=== PATIENT | female | born 1955 | race Caucasian/White ===

== ENCOUNTER 2017-10-17 09:44 | Day surgery (SDC) | payer BC ==
[~2017-10-17 09:44] MED LIST: VERSED ONE
[2017-10-17] MEDS ORDERED: NS 500 ML IV 500 ML IV ONE (12:30)
[2017-10-17] MEDS ORDERED: TETRACAINE 0.5% OPHTH 1 DOSE AFFEYE ONE ×2 (12:42→14:37)
[2017-10-17] MEDS ORDERED: VIGAMOX 0.5% OPHTH 1 DOSE AFFEYE ONE ×5 (12:45→15:05)
[2017-10-17] MEDS ORDERED: PROLENSA OPHTH 1 DOSE AFFEYE ONE (12:56)
[2017-10-17] MEDS ORDERED: ALPHAGAN-P OPHTH 1 DOSE AFFEYE ONE (12:58)
[2017-10-17] MEDS ORDERED: CYCLOGYL 1% OPHTH 1 DOSE OP ONE ×3 (13:00→13:05)
[2017-10-17] MEDS ORDERED: AK-DILATE 2.5% OPHTH 1 DOSE OP ONE ×3 (13:00→13:05)
[2017-10-17] MEDS ORDERED: MYDRIACIL OPHTH 1 DOSE AFFEYE ONE ×3 (13:00→13:05)
[2017-10-17] MEDS ORDERED: BETADINE OPHTH SOLN 5% EACHEYE ONE (14:38)
[2017-10-17] MEDS ORDERED: ADRENALINE CHL INJ IJ ONE ×2 (14:41→14:52)
[2017-10-17] MEDS ORDERED: XYLOCAINE-MPF 1% IJ ONE ×2 (14:41→14:52)
[2017-10-17] MEDS ORDERED: DUOVISC IO ONE ×2 (14:41→14:52)
[2017-10-17] MEDS ORDERED: BSS OPHTH (PLAIN) 500 ML with VANCOMYCIN HCL 500 MG VIAL 25 MG, ADRENALINE CHL INJ 1 MG IR ONE ×6 (14:44)
[2017-10-17 16:59] VITALS: BP 124/80
== END 2017-10-17 15:30 | disposition home or self-care (01) ==
LOC: SURG1 09:44
PROVIDERS: ATTEND Ophthalmology
PROC: 08DK3ZZ Extraction of Left Lens, Percutaneous Approach (ICD-10-PCS; principal; 2017-10-17 19:30)
PROC: 08RK3JZ Replacement of Left Lens with Synthetic Substitute, Percutaneous Approach (ICD-10-PCS; principal; 2017-10-17 19:30)
DX: H25.12 Age-related nuclear cataract, left eye (principal); H25.042 Posterior subcapsular polar age-related cataract, left eye; H25.012 Cortical age-related cataract, left eye
CPT/HCPCS: A4217; J0170; J2250; J3370